=== PATIENT | female | born 1975 | race African-American/Black ===

== ENCOUNTER 2022-02-18 19:29 | Emergency (ER) | payer MEDICARE, SELFPAY ==
[2022-02-18 19:40] VITALS: BP 99/72; PULSE 128; RESP 20; TEMP 36.9; O2SAT 100
[2022-02-18 20:50] VITALS: TEMP 37.9
--- NOTE | 2022-02-18 20:51 | ED.FEVER ---
HPI - Fever General Chief Complaint: Fever Stated Complaint: sore thorat fever Time Seen by Provider: 02/18/22 20:51 History of Present Illness HPI Narrative: Patient is a 47-year-old female who presents ER with sore throat. Ongoing since this morning. Associate with fevers. No difficulty breathing or swallowing. No chest pain or chest pressure. She had 2 negative COVID tests that were rapid, she does currently have a pending PCR that will be back tomorrow. Due to the discomfort she went to come in for further evaluation for flu and strep. No known sick contacts. Patient has been using sore throat lozenges with temporary improvement. Related Data Allergies Allergy/AdvReac Type Severity Reaction Status Date / Time amitriptyline Allergy Swelling Verified 02/18/22 21:16 of Lip/Tongue/Throat enoxaparin [From Lovenox] Allergy Anaphylaxis Verified 02/18/22 21:16 gabapentin Allergy Hallucinati Verified 02/18/22 21:16 ng metoclopramide Allergy Wheezing Verified 02/18/22 21:16 Sulfa (Sulfonamide Allergy Hives Verified 02/18/22 21:16 Antibiotics) sulfasalazine Allergy Hives Verified 02/18/22 21:16 Review of Systems Review of Systems: All systems reviewed & are unremarkable except as noted in HPI and below Constitutional: Constitutional: Reports chills, Reports fatigue and Reports fever(s) ENT: Denies nasal congestion and Reports sore throat Cardiovascular: Cardiovascular: Denies chest pain, Denies rapid heart rate and Denies radiating jaw, neck or arm pain Respiratory: Respiratory: Denies cough and Denies dyspnea Gastrointestinal: Gastrointestinal: Denies abdominal pain, Denies nausea and Denies vomiting Musculoskeletal: Musculoskeletal: Reports myalgias, Denies arthralgias and Denies joint swelling PMFSH Past Medical History Medical History (Updated 02/18/22 @ 22:44 by Baltazar Kelley MD) Lupus Surgical History Surgical History (Updated 02/18/22 @ 22:41 by Baltazar Kelley MD) No pertinent past surgical history Exam Narrative: GENERAL: Well-appearing, well-nourished, and in no acute distress. HEAD: Normocephalic, atraumatic. EYES: PERRL and EOMI. ENT: Mucous membranes moist. Normal-appearing posterior oropharynx without tonsillar hypertrophy or exudate, uvula midline nonedematous. NECK: Supple. CHEST: Clear to auscultation. No respiratory distress. HEART: Tachycardic and regular. Normal peripheral pulses.. EXTREMITIES: Normal range of motion. No edema. NEURO: Alert and oriented x3. PSYCH: Normal mood and affect. Course Reevaluation(s) Reevaluation #1: Nursing staff had difficulty getting a line on the patient, IVs they could access patient did not want. She is received Tylenol. Her flu test and her strep test are negative. She is still tachycardic and blood per is 104 64. Patient is awake alert and oriented nontoxic-appearing. Date: 02/18/22 Time: 22:43 Vital Signs Vital signs: Vital Signs Temperature 98.4 F 02/18/22 19:40 Pulse Rate 128 H 02/18/22 19:40 Respiratory Rate 20 02/18/22 19:40 Blood Pressure 99/72 L 02/18/22 19:40 Pulse Oximetry 100 02/18/22 19:40 Oxygen Delivery Room Air 02/18/22 19:40 Temperature 99.3 F 02/18/22 22:34 Pulse Rate 115 H 02/18/22 22:34 Respiratory Rate 18 02/18/22 22:34 Blood Pressure 104/64 02/18/22 22:34 Pulse Oximetry 98 02/18/22 22:34 Oxygen Delivery Room Air 02/18/22 19:40 MDM - Fever Lab Data Labs: Influenza A Screen Negative Reference Range: Negative Influenza B Screen Negative Reference Range: Negative Strep Screen Presumptive Negative *(Reference Range: Negative)* Discharge Plan Discharge Clinical Impression: Acute viral syndrome Patient Disposition: Home, Self-Care Condition: Stable
[2022-02-18] MEDS: ACETAMINOPHEN 500 MG TABLET 1000 MG PO (21:17)
--- NOTE | 2022-02-18 21:56 | PC.NURSE ---
unable to obtain IV access. vein found in hand, patient refused. advised patient that a vein finder and Iv US is not available at this time. fluids encouraged. Recheck temp 101.2. advised patient to removed heavy blankets. patient refused, stating that she is cold.
[2022-02-18 22:34] VITALS: BP 104/64; PULSE 115; RESP 18; TEMP 37.4; O2SAT 98
--- NOTE | 2022-02-18 22:34 | PC.NURSE ---
pt requesting to leave. aware.
== END 2022-02-18 22:58 | disposition home or self-care (01) ==
PROVIDERS: Emergency Provider Emergency Medicine
DX: B34.9 Viral infection, unspecified (principal)
CPT/HCPCS: 87081; 87804; 87880; 99283; A9270